=== PATIENT | male | born 2000 | race Caucasian/White ===

== ENCOUNTER 2023-09-14 09:39 | Emergency (ER) | payer OTHER ==
[~2023-09-14] VITALS: Ht 170.2 cm; Wt 77.3 kg
[2023-09-14] MEDS ORDERED: ACET325C5 PO (09:51)
[2023-09-14] MEDS: ONDANSETRON 4MG 2ML VIAL IV ONE (10:07)
[2023-09-14] MEDS: KETOROLAC 30 MG/ML 1ML VIAL IV ONE (10:07)
[2023-09-14] MEDS: NS 1,000 ML IV ONE (10:07)
[2023-09-14 10:15] LABS: BASO # 0.1 10^3/uL (0.0-0.2); BASO % 0.5 % (0.0-1.0); EOS # 0.3 10^3/uL (0.0-0.5); EOS % 2.1 % (0.0-3.0); HEMATOCRIT 45.4 % (42.0-52.0); HEMOGLOBIN 15.4 g/dl (13.5-17.5); LYMPH # 1.6 10^3/uL (1.5-5.0); MEAN CORPUSCULAR HEMOGLOBIN 30.4 pg (27.0-33.0); MEAN CORPUSCULAR HGB CONC 33.9 g/dl (32.0-36.5); MEAN CORPUSCULAR VOLUME 89.5 fl (80.0-96.0); MONO # 0.6 10^3/uL (0.0-0.8); NEUTROPHILS # 9.7 10^3/uL (1.5-8.5); NEUTROPHILS % 79.1 % (36.0-66.0); PLATELET COUNT, AUTOMATED 265 10^3/uL (150-450); RED BLOOD COUNT 5.07 10^6/uL (4.30-6.10); WHITE BLOOD COUNT 12.2 10^3/uL (4.0-10.0)
[2023-09-14 10:39] LABS: LIPASE 34 U/L (12-53)
[2023-09-14 10:41] LABS: ALBUMIN 4.5 G/DL (3.2-5.2); ALKALINE PHOSPHATASE 79 U/L (46-116); ALT/SGPT 20 U/L (7.0-40); AST/SGOT 10 U/L (<34); BILIRUBIN,DIRECT 0.1 MG/DL (<0.4); BILIRUBIN,TOTAL 0.4 MG/DL (0.3-1.2); BLOOD UREA NITROGEN 11 MG/DL (9-23); CALCIUM LEVEL 9.7 MG/DL (8.5-10.1); CARBON DIOXIDE LEVEL 28 MMOL/L (20-31); CHLORIDE LEVEL 106 MMOL/L (98-107); GLOMERULAR FILTRATION RATE > 60.0 (>60); GLUCOSE, FASTING 103 MG/DL (60-100); POTASSIUM SERUM 4.6 MMOL/L (3.5-5.1); SODIUM LEVEL 140 MMOL/L (136-145); TOTAL PROTEIN 7.3 G/DL (5.7-8.2)
[2023-09-14] MEDS ORDERED: ONDA-282 PO (12:18)
[2023-09-14] MEDS ORDERED: OXYC-517 PO (12:18)
[2023-09-14] MEDS ORDERED: KETO10TAB PO (12:18)
[2023-09-14 12:33] VITALS: BP 108/64; TEMP 98; O2SAT 98
== END 2023-09-14 12:38 | disposition home or self-care (01) ==
LOC: M ED 09:39 → EDBD 09:39 → M ED 12:38
DX: N20.0 Calculus of kidney (principal); K57.30 Diverticulosis of large intestine without perforation or abscess without bleeding
CPT/HCPCS: 74176; 80048; 80076; 81001; 83690; 85025; 96361; 96374; 96375; 99284; J1885; J2405

== ENCOUNTER 2024-04-09 09:56 | Day surgery (SDC) | payer OTHER ==
[~2024-04-09] VITALS: Ht 170.2 cm; Wt 84.5 kg
[~2024-04-09 09:56] MED LIST: ACET325C5 PO; FLOM0.4C39 PO; HUMI40KI SC; IBUP80TA PO; KETO10TAB PO; ONDA-282 PO; OXYC-517 PO
[2024-04-09] MEDS ORDERED: NS (Normal Saline) 0.9% 1,000 ML IV SCH ×2 (10:30→13:05)
[2024-04-09] MEDS ORDERED: BACTDSTA PO (10:31)
[2024-04-09] MEDS ORDERED: propofoL 200 MG/20 ML VIAL As Ordered ONE (10:39)
[2024-04-09] MEDS ORDERED: LIDOCAINE 2% 100MG/5ML SDV (FOR ANES.) As Ordered ONE (10:39)
[2024-04-09] MEDS ORDERED: ACETAMINOPHEN 1000MG/100ML IV BAG As Ordered ONE (10:39)
[2024-04-09] MEDS ORDERED: fentaNYL 100 MCG/2 ML INJECTION As Ordered ONE (10:39)
[2024-04-09] MEDS ORDERED: MIDAZOLAM INJ 2MG/2ML VIAL As Ordered ONE (10:41)
[2024-04-09] MEDS: ISOVUE-300 61% 100ML VIAL As Ordered ONE (11:39)
[2024-04-09] MEDS: ceFAZolin 2 GM/D5W 50 ML IV BAG As Ordered ONE (12:00)
[2024-04-09] MEDS ORDERED: ONDANSETRON 4MG 2ML VIAL As Ordered ONE (12:32)
[2024-04-09] MEDS ORDERED: KETOROLAC 60MG 2ML VIAL As Ordered ONE (12:32)
[2024-04-09] MEDS ORDERED: fentaNYL 100 MCG/2 ML INJECTION IV PRN (13:05)
[2024-04-09] MEDS ORDERED: HYDROMORPHONE HCL 0.5 MG/ 0.5 ML SYRINGE IV PRN (13:05)
[2024-04-09] MEDS ORDERED: ONDANSETRON 4MG 2ML VIAL IV PRN (13:05)
[2024-04-09] MEDS: oxyCODONE 5MG TAB PO PRN (13:22)
[2024-04-09] MEDS ORDERED: FLOM0.4C39 PO (13:43)
[2024-04-09 13:47] VITALS: BP 128/81; TEMP 97.8; O2SAT 96
== END 2024-04-09 14:53 | disposition home or self-care (01) ==
LOC: M SDC 09:56
PROVIDERS: ATTEND Urology
DX: N13.2 Hydronephrosis with renal and ureteral calculous obstruction (principal); L40.9 Psoriasis, unspecified; Z79.620 Long term (current) use of immunosuppressive biologic; Z79.899 Other long term (current) drug therapy
CPT/HCPCS: 52356; 76000; 82365; C1769; C1894; C2617; J0131; J0690; J1100; J1885; J2250; J2405; J3010; Q9967

== ENCOUNTER 2024-04-16 19:07 | Emergency (ER) | payer OTHER ==
[~2024-04-16] VITALS: Ht 170.2 cm; Wt 77.3 kg
[~2024-04-16 19:07] MED LIST changes: -HYDR-3713 PO; -OXYB5TAB14 PO; -PYRI1TAB5 PO
[2024-04-16 20:17] LABS: BASO # 0.1 10^3/uL (0.0-0.2); BASO % 0.4 % (0.0-1.0); EOS % 0.3 % (0.0-3.0); HEMATOCRIT 42.1 % (42.0-52.0); HEMOGLOBIN 15.3 g/dl (13.5-17.5); LYMPH # 0.9 10^3/uL (1.5-5.0); LYMPH % 6.9 % (24.0-44.0); MEAN CORPUSCULAR HEMOGLOBIN 31.3 pg (27.0-33.0); MEAN CORPUSCULAR HGB CONC 36.3 g/dl (32.0-36.5); MEAN CORPUSCULAR VOLUME 86.1 fl (80.0-96.0); MONO # 0.9 10^3/uL (0.0-0.8); MONO % 6.7 % (2.0-8.0); NEUTROPHILS # 11.1 10^3/uL (1.5-8.5); NEUTROPHILS % 85.3 % (36.0-66.0); PLATELET COUNT, AUTOMATED 279 10^3/uL (150-450); RED BLOOD COUNT 4.89 10^6/uL (4.30-6.10)
[2024-04-16] MEDS: KETOROLAC 30 MG/ML 1ML VIAL IV ONE (20:26)
[2024-04-16] MEDS: NS (Normal Saline) 0.9% 1,000 ML IV ONE ×2 (20:26→21:53)
[2024-04-16] MEDS: ONDANSETRON 4MG 2ML VIAL IV ONE (20:26)
[2024-04-16] MEDS: MORPHINE 4 MG/ML 1ML VIAL IV ONE (20:27)
[2024-04-16 21:17] LABS: BLOOD UREA NITROGEN 18 MG/DL (9-23); CALCIUM LEVEL 9.5 MG/DL (8.5-10.1); CARBON DIOXIDE LEVEL 25 MMOL/L (20-31); CHLORIDE LEVEL 102 MMOL/L (98-107); CREATININE FOR GFR 1.09 MG/DL (0.70-1.30); GLOMERULAR FILTRATION RATE > 60.0 (>60); GLUCOSE, FASTING 115 MG/DL (60-100); POTASSIUM SERUM 3.6 MMOL/L (3.5-5.1); SODIUM LEVEL 140 MMOL/L (136-145)
[2024-04-16 21:41] LABS: KETONE, URINE AUTO RFX 2+ mg/dL (NEGATIVE); MUCUS, URINE RFX MODERATE (NEGATIVE); NITRITE, URINE AUTO RFX NEGATIVE (NEGATIVE); RBC, URINE AUTO RFX TNTC /HPF (0-3); SQUAM EPITHELIAL CELL UR AURFX 0 /HPF (0-6)
[2024-04-16] MEDS: ANEXSIA, NORCO 7.5MG/325MG TABLET(HYDROCODONE/APAP) PO ONE (21:42)
[2024-04-16] MEDS: oxyBUTYnin 5 MG TAB PO STA (21:42)
[2024-04-16] MEDS: PHENAZOPYRIDINE 100 MG TAB PO ONE (21:42)
[2024-04-16] MEDS ORDERED: HYDR-3713 PO (21:44)
[2024-04-16] MEDS ORDERED: OXYB5TAB14 PO (21:44)
[2024-04-16] MEDS ORDERED: PYRI1TAB5 PO (21:44)
[2024-04-16 21:46] LABS: LEUKOCYTE ESTERASE UR AUTO RFX 2+ (NEGATIVE); WBC, URINE AUTO RFX 168 /HPF (0-3)
[2024-04-16 23:53] VITALS: BP 116/62; TEMP 97.8; O2SAT 100
[2024-04-17] MEDS: NORCO 5/325MG TABLET (HOME DOSE PACK) PO ONE (00:08)
== END 2024-04-17 00:24 | disposition home or self-care (01) ==
LOC: EDBD 19:07 → EDUNIT# 19:07 → M ED 19:07
DX: R10.9 Unspecified abdominal pain (principal); Z87.442 Personal history of urinary calculi; Z79.899 Other long term (current) drug therapy
CPT/HCPCS: 74176; 80047; 80048; 81001; 85025; 87086; 96361; 96374; 96375; 99284; J1885; J2405

== ENCOUNTER → 2024-04-16 | Outpatient (REF) ==
[~2024-04-16] MED LIST changes: +BACTDSTA PO; +HYDR-3713 PO; +OXYB5TAB14 PO; +PYRI1TAB5 PO
== END ==
LOC: M PLAIMG 10:47
PROVIDERS: ATTEND Internal Medicine
DX: R06.02 Shortness of breath (principal)